=== PATIENT | female | born 2000 | race Two or more races ===

== ENCOUNTER 2018-05-06 17:09 | Emergency (ER) | payer MEDICAID ==
[~2018-05-06] VITALS: Ht 182.9 cm; Wt 64.0 kg
[2018-05-06] MEDS ORDERED: IBUPROFEN 600MG TABLET PO ONE (22:15)
[2018-05-06] MEDS ORDERED: AZITHROMYCIN 500 MG TABLET PO ONE (22:15)
[2018-05-06 22:48] VITALS: BP 120/84
== END 2018-05-07 00:20 | disposition home or self-care (01) ==
LOC: ER 23:58
DX: J02.9 Acute pharyngitis, unspecified (principal)
CPT/HCPCS: 99283

== ENCOUNTER 2018-05-07 14:31 | Emergency (ER) | payer MEDICAID ==
[~2018-05-07] VITALS: Ht 177.8 cm; Wt 66.0 kg
[2018-05-07 15:16] VITALS: BP 122/55
== END 2018-05-07 21:39 | disposition left against medical advice (07) ==
LOC: ER 14:31
DX: Z53.21 Procedure and treatment not carried out due to patient leaving prior to being seen by health care provider (principal)